=== PATIENT | female | born 1965 | race Caucasian/White ===

== ENCOUNTER 2019-09-29 09:55 | Emergency (ER) | payer BC ==
--- NOTE | 2019-09-29 10:05 | ED ---
Skin Complaint - HPI Summary HPI Summary: Patient is a 53 y/o F presenting to the ED for a chief complaint of a rash on the right side of the nose, right eye, right orthodoxy, and right forehead. On the night of 09/28/19, she noticed a bump on her forehead which she believed was a pimple. Upon waking up around 08:00 on 09/29/19, patient initially noticed she had a rash on the nose, and an hour later, she noticed a rash on the right eye, right orthodoxy, and right forehead. She describes that rash as a burning and itchiness sensation. Her LAB NURSE at her PCPs office recommended she be seen at [facility]. She notes having chicken pox as a child, but denies having shingles in the past. Patient notes a headache for the last few days. She denies fever, nausea, vomiting, myalgia, or changes in vision. Any recent changes in facial products is denied. Any aggravating or alleviating factors is denied. Patient was recommended to take 5 mg of DHEA which she did not take on 09/28/19. PMHx is significant for hypothyroidism for which she takes levothyroxine. - History of Current Complaint Chief Complaint: EDRashSkinAbscess Time Seen by Provider: 09/29/19 10:02 Stated Complaint: POSS SHINGLES PER PT Hx Obtained From: Patient Onset/Duration: Atraumatic, Still Present Skin Exposure Onset/Duration: Hours Ago Timing: Constant Onset Severity: Mild Current Severity: Mild Pain Intensity: 1 Pain Scale Used: 0-10 Numeric Skin Location: Face - Right eye, right forehead, and right orthodoxy, Nose - Right Aggravating Symptom(s): Nothing Alleviating Symptom(s): Nothing Associated Signs & Symptoms: Rash - Right side of the nose, right eye, right orthodoxy, and right forehead - Allergy/Home Medications Allergies/Adverse Reactions: Allergies Allergy/AdvReac Type Severity Reaction Status Date / Time Sulfa (Sulfonamide Allergy Unknown Verified 09/29/19 10:00 Antibiotics) Reaction Details Home Medications: Home Medications Levothyroxine Sodium 75 mcg PO DAILY 09/29/19 [History Confirmed 09/29/19] predniSONE 10 mg TAB [Deltasone 10 MG TAB*] 5 mg PO DAILY 09/29/19 [History Confirmed 09/29/19] PMH/Surg Hx/FS Hx/Imm Hx Previously Healthy: Yes Endocrine/Hematology History: Reports: Hx Thyroid Disease - Hypothyroid Denies: Hx Diabetes Cardiovascular History: Denies: Hx Hypercholesterolemia, Hx Hypertension Sensory History: Denies: Hx Legally Blind, Hx Deafness Opthamlomology History: Denies: Hx Legally Blind EENT History: Denies: Hx Deafness - Surgical History Surgical History: None Surgery Procedure, Year, and Place: None Infectious Disease History: No Infectious Disease History: Denies: Traveled Outside the [place] in Last 30 Days - Family History Known Family History: Negative: Diabetes - Social History Occupation: Works From/At Home Lives: With Family Alcohol Use: None Hx Substance Use: No Substance Use Type: Reports: None Hx Tobacco Use: No Smoking Status (MU): Never Smoked Tobacco Review of Systems Negative: Fever Negative: Other - Negative changes in visions Negative: Vomiting, Nausea Negative: Myalgia Positive: Rash - Right side of the nose, right eye, right orthodoxy, and right forehead Positive: Headache All Other Systems Reviewed And Are Negative: Yes Physical Exam - Summary Physical Exam Summary: Constitutional: Well-developed, Well-nourished, Alert. (-) Distressed Skin: Warm, Dry. Sporadic erythematous rash over right forehead and upper face consistent with dermatomal distribution, no vesicles noted. HENT: Normocephalic; Atraumatic Eyes: Conjunctiva normal Neck: Musculoskeletal ROM normal neck. (-) JVD, (-) Stridor, (-) Tracheal deviation Cardio: Rhythm regular, rate normal, Heart sounds normal; Intact distal pulses; The pedal pulses are 2+ and symmetric. Radial pulses are 2+ and symmetric. (-) Murmur Pulmonary/Chest wall: Effort normal. (-) Respiratory distress, (-) Wheezes, (-) Rales Abd: Soft, (-) tenderness, (-) Distension, (-) Guarding, (-) Rebound Musculoskeletal: (-) Edema Lymph: (-) Cervical adenopathy Neuro: Alert, Oriented x3 Psych: Mood and affect Normal Triage Information Reviewed: Yes Vital Signs On Initial Exam: Initial Vitals Temp Pulse Resp BP Pulse Ox 99.1 F 88 19 152/101 98 09/29/19 09:56 09/29/19 09:56 09/29/19 09:56 09/29/19 09:56 09/29/19 09:56 Vital Signs Reviewed: Yes Procedures - Sedation Patient Received Moderate/Deep Sedation with Procedure: No Diagnostics - Vital Signs Vital Signs Temp Pulse Resp BP Pulse Ox 09/29/19 09:56 99.1 F 88 19 152/101 98 - Laboratory Lab Statement: Any lab studies that have been ordered have been reviewed, and results considered in the medical decision making process. Course/Dx - Course Course Of Treatment: Patient is a 53 y/o F presenting to the ED for a chief complaint of a rash on the right side of the nose, right eye, right orthodoxy, and right forehead. On the night of 09/28/19, she noticed a bump on her forehead which she believed was a pimple. Upon waking up around 08:00 on 09/29/19, patient initially noticed she had a rash on the nose, and an hour later, she noticed a rash on the right eye, right orthodoxy, and right forehead. She describes that rash as a burning and itchiness sensation. Her LAB NURSE at her PCPs office recommended she be seen at [facility]. She notes having chicken pox as a child , but denies having shingles in the past. Patient notes a headache for the last few days. She denies fever, nausea, vomiting, myalgia, or changes in vision. Any recent changes in facial products is denied. Any aggravating or alleviating factors is denied. Patient was recommended to take 5 mg of DHEA which she did not take on 09/28/19. PMHx is significant for hypothyroidism for which she takes levothyroxine. On exam, sporadic erythematous rash over right forehead and upper face consistent with dermatomal distribution, no vesicles noted. At 10:56, I discussed with Dr. rAt Saavedra who recommends Valtrex, but does not recommend an eye topical steroid at this time. He will follow up with the patient on Monday or Monday. Patient will be discharged with a diagnosis of shingles and a prescription for Valtrex. Follow up with opthalmology within 1-2 days. - Diagnoses Provider Diagnoses: Shingles - Physician Notifications Discussed Care Of Patient With: Art Saavedra - At 10:56, I discussed with Dr. Art Saavedra who recommends Valtrex, but does not recommend an eye topical steroid at this time. He will follow up with the patient on Monday or Monday. Time Discussed With Above Provider: 10:56 Instructed by Provider To: Have Pt Call For Appt. Discharge ED - Sign-Out/Discharge Documenting (check all that apply): Patient Departure - Discharge - Discharge Plan Condition: Stable Disposition: HOME Prescriptions: Valacyclovir HCl [Valacyclovir] 1,000 mg PO Q8HR 7 Days #42 tablet Patient Education Materials: [facility] (ED) Referrals: Carmelita Cool MD [Primary Care Provider] - Art Saavedra MD [Medical Doctor] - Additional Instructions: RETURN TO THE EMERGENCY DEPARTMENT FOR CHANGING OR WORSENING SYMPTOMS. Follow up with ophthalmology and your primary care physician in 1-3 days. - Billing Disposition and Condition Condition: STABLE Disposition: Home - Attestation Statements Document Initiated by Sharon: Yes Documenting Scribe: Jayla Walker Provider For Whom Sharon is Documenting (Include Credential): Orlin Li DO Scribe Attestation: Jayla Hampton scribed for Orlin Li DO on 09/29/19 at 1302. Scribe Documentation Reviewed: Yes Provider Attestation: The documentation as recorded by the Jayla grigsby accurately reflects the service I personally performed and the decisions made by Orlin nolasco DO Status of Scribwyatt Document: Viewed
--- OUTSIDE RECORDS SUMMARY | 2019-09-29 10:19 | XMS REPORT | Continuity of Care Document ---
:1965 External Reference #:[id number] Author Name ROXANA Fairbanks (transmitted by agent of provider Sarah Antonio) Address [address], [address] [place] [id number] Care Team Providers Name Role Phone Carmelita Cool MD - Family Care Team Information [employer] Administrator [phone] Medicine Problems Description No Information Available Social History Type Date Description Comments Sex Unknown Tobacco Use Start: Unknown End: Does not smoke Unknown ETOH Use Currently consumes 4-6 drinks per week alcohol Recreational Drug Use Denies Drug Use Tobacco Use Start: Unknown Patient has never smoked Smoking Status Reviewed: 09/16/19 Patient has never smoked Exercise Type/Frequency Exercises regularly Walking, Yoga Allergies, Adverse Reactions, Alerts Active Allergies Reaction Severity Comments Date Sulfa Drugs 08/20/2019 Medications Active Medications SIG Qnty Indications Ordering Provider Date Levothyroxine Sodium 1 by mouth every Unknown 75mcg day Tablets Vitamin B-12 1 by mouth every Unknown 1000mcg day Tablets Vitamin D3 2 tab by mouth Unknown 1000Unit Tablets every at bedtime Immunizations Description No Information Available Vital Signs Date Vital Result Comment 09/16/2019 12:59pm Height 65.5 inches 5'5.50" Weight 146.38 lb Heart Rate 61 /min BP Systolic 114 mmHg BP Diastolic 66 mmHg Body Temperature 97.6 F O2 % BldC Oximetry 100 % BMI (Body Mass Index) 24.0 kg/m2 Results Description No Information Available Procedures Description No Information Available Medical Devices Description No Information Available Encounters Description No Information Available Assessments Date Code Description Provider 09/16/2019 N95.0 Postmenopausal bleeding ROXANA Fairbanks 09/16/2019 N95.9 Unspecified menopausal and perimenopausal ROXANA Fairbanks disorder Plan of Treatment 09/16/2019 - Flores Oliva, PAN95.0 Postmenopausal bleedingRecommendations: sign up for my portal so we can communicate make an appt with me in 1-2 months but we will communicate about the ultrasound [id number] Unspecified menopausal and perimenopausal disorderRecommendations:Please read Amy Austin The Hormone Cure I believe your cortisol is likely to be low/ Dr. Bauer/ Adrenal Thyroid revolution is a great book/ also listen to her amazing podcasts. [employer] Please take DHEA 5mg daily. Order from [employer].I'm sending you an invite to [facility] online dispens[facility] to give you recommendations and you can order any of your supplements through them. You will get this in an email. I will review labs in the system mindfulness is the fonseca to regulation of the HPA axis. legs up the wall / 15 minutes yoga can be great when you can. Functional Status Description No Information Available Mental Status Description No Information Available Referrals Description No Information Available
[2019-09-29 11:12] VITALS: BP 120/67
== END 2019-09-29 11:09 | disposition home or self-care (01) ==
LOC: ED 09:55
DX: B02.9 Zoster without complications (principal); E03.9 Hypothyroidism, unspecified; Z79.890 Hormone replacement therapy; Z79.899 Other long term (current) drug therapy; Z88.2 Allergy status to sulfonamides
CPT/HCPCS: 99282